=== PATIENT | female | born 1985 | race Caucasian/White ===

== ENCOUNTER 2024-01-06 13:52 | Emergency (ER) | payer OTHER ==
[2024-01-06 14:11] VITALS: BP 127/71; PULSE 86; RESP 18; TEMP 97.5; BMI 29.2
[2024-01-06] MEDS ORDERED: ONDANSETRON *ODT* 4 MG TABLET ONE (16:01)
[2024-01-06] MEDS ORDERED: FAMOTIDINE 20 MG TABLET ONE (16:01)
[2024-01-06] MEDS: ONDANSETRON *ODT* 4 MG TABLET SL ONE (16:22)
[2024-01-06] MEDS: FAMOTIDINE 20 MG TABLET PO ONE (16:22)
[2024-01-06 16:31] LABS: PH,URINE 5.5 (5.0-8.0); URINE APPEARANCE CLEAR; URINE BILIRUBIN NEGATIVE (NEGATIVE); URINE COLOR YELLOW; URINE GLUCOSE (UA) NEGATIVE (NEGATIVE); URINE KETONE NEGATIVE (NEGATIVE); URINE LEUK ESTERASE NEGATIVE (NEGATIVE); URINE NITRITE NEGATIVE (NEGATIVE); URINE PROTEIN NEGATIVE (NEGATIVE); URINE UROBILINOGEN 0.2 mg/dL (0.2-1.0)
[2024-01-06 16:54] LABS: HCG,QUALITATIVE URINE NEGATIVE
== END 2024-01-06 17:06 | disposition home or self-care (01) ==
LOC: JER 13:52
DX: R10.13 Epigastric pain (principal); R10.12 Left upper quadrant pain; R19.7 Diarrhea, unspecified; R11.0 Nausea
CPT/HCPCS: 81003; 84703; 99283-25; Q0162